=== PATIENT | female | born 1985 | race Asian ===

== ENCOUNTER 2017-11-07 22:33 | Emergency (ER) | payer OTHER ==
[~2017-11-07] VITALS: Ht 162.6 cm; Wt 56.7 kg
[2017-11-08 00:14] LABS: ABSOLUTE NEUTROPHILS 3.5 thou/uL (1.4-8.2); EOSINOPHILS 19.9 % (0.0-3.0); HEMATOCRIT 34.9 % (37.0-47.0); HEMOGLOBIN 11.7 gm/dL (12.0-15.0); MCH 26.2 pg (26.0-34.0); MCHC 33.6 g/dL (28.0-37.0); PLATELET COUNT 322 thou/uL (150-400); POLYS 32.1 % (36.0-66.0); RBC 4.48 mil/uL (4.20-5.00); RDW 15.4 % (10.5-14.5); WBC 10.8 thou/uL (4.0-11.0)
[2017-11-08 00:22] LABS: CALCIUM 9.1 mg/dL (8.5-10.1); CREATININE 0.7 mg/dL (0.6-1.0); POTASSIUM 4.2 mmol/L (3.5-5.1)
[2017-11-08 00:28] LABS: ALBUMIN 3.5 g/dL (3.4-5.0); TOTAL BILIRUBIN 0.5 mg/dL (<0.1-1.0); TOTAL PROTEIN 8.3 g/dL (6.4-8.2)
[2017-11-08 00:48] LABS: URINE BILIRUBIN NEGATIVE (Negative); URINE BLOOD NEGATIVE (Negative); URINE CLARITY CLEAR; URINE COLOR YELLOW; URINE GLUCOSE-RANDOM* NEGATIVE (Negative); URINE KETONES NEGATIVE (Negative); URINE LEUKOCYTES-REFLEX NEGATIVE (Negative); URINE NITRITE-REFLEX NEGATIVE (Negative); URINE PROTEIN (DIPSTICK) NEGATIVE (Negative); URINE SPECIFIC GRAVITY 1.015 (1.005-1.035); URINE UROBILINOGEN 0.2 E.U./dl (0.2-1.0)
[2017-11-08] MEDS ORDERED: TRAMADOL 50 MG50 MG PO (01:50)
[2017-11-08] MEDS ORDERED: NAPROSYN500 MG PO (01:50)
[2017-11-08 02:05] VITALS: BP 94/66
== END 2017-11-08 02:05 | disposition home or self-care (01) ==
LOC: ER 22:33
PROVIDERS: Physician Assistant
DX: N83.202 Unspecified ovarian cyst, left side (principal); N83.201 Unspecified ovarian cyst, right side; J45.909 Unspecified asthma, uncomplicated

== ENCOUNTER → 2018-02-17 | Outpatient (CLI) | payer OTHER ==
[~2018-02-17] MED LIST: NAPROSYN500 MG PO; TRAMADOL 50 MG50 MG PO
== END ==
LOC: RAD 10:06
DX: J18.1 Lobar pneumonia, unspecified organism (principal)

== ENCOUNTER → 2018-06-26 | Outpatient (CLI) | payer OTHER | LOC: ULTRA 11:14 | DX: N83.202 Unspecified ovarian cyst, left side (principal); N83.201 Unspecified ovarian cyst, right side; R05 Cough; N88.8 Other specified noninflammatory disorders of cervix uteri ==

== ENCOUNTER → 2018-07-21 | Outpatient (CLI) | payer OTHER | LOC: RAD 16:13 | DX: J98.4 Other disorders of lung (principal); R91.8 Other nonspecific abnormal finding of lung field ==

== ENCOUNTER → 2018-08-04 | Outpatient (CLI) | payer OTHER ==
[~2018-08-04] MED LIST changes: +DIPHENHYDRAMINE25 M3 PO; +MELATONIN3 MG PO; +SINGULAIR 10 MG10 M1 PO; +TYLENOL325 MG PO
== END ==
LOC: CAT 09:21
DX: J47.9 Bronchiectasis, uncomplicated (principal); R91.8 Other nonspecific abnormal finding of lung field

== ENCOUNTER 2018-08-10 06:18 | Outpatient (CLI) | payer OTHER ==
[~2018-08-10] VITALS: Ht 162.6 cm; Wt 63.0 kg
[~2018-08-10 06:18] MED LIST changes: -DIPHENHYDRAMINE25 M3 PO; -MELATONIN3 MG PO; -TYLENOL325 MG PO
[2018-08-10 09:30] VITALS: BP 112/77
[2018-08-10 12:44] LABS: CLARITY CLOUDY; COLOR PALE YELLOW; SOURCE RUL; TOTAL VOLUME 40 mL
[2018-08-10 13:01] LABS: BF NUCLEATED CELLS 516; BF RBC 1974
[2018-08-10 14:23] LABS: BF MACROPHAGE 38; BF NEUTROPHILS 35
[2018-08-11] MEDS ORDERED: TYLENOL325 MG PO (15:40)
[2018-08-11] MEDS ORDERED: MELATONIN3 MG PO (15:41)
[2018-08-11] MEDS ORDERED: DIPHENHYDRAMINE25 M3 PO (15:42)
--- NOTE | 2018-08-11 17:06 | PATH ---
[facility] [address] [place] [address] PATHOLOGY RPT [facility] #: DEP RENE Price.#: [id number] ������������������ Admission: 08/10/18 ������������������ Date of : 83 Discharge: 08/10/18 Report #: [id number] Path Case #: [id number] Note LCA Accession Number: [id number] TESTS RESULT FLAG UNITS REF RANGE LAB Clinician Provided Cytology Information No. of containers..01 Other (Miscellaneous) Source: RUL BRONCH WASH DIAGNOSIS: RUL BRONCH WASH NEGATIVE FOR MALIGNANT CELLS. REACTIVE BRONCHIAL CELLS ARE PRESENT. PULMONARY MACROPHAGES PRESENT, INDICATIVE OF LOWER RESPIRATORY TRACT SAMPLING. Pathologist ICD10: 02 R91.8 Signed out by: 02 Thelma Hobbs MD, Pathologist NPI- [id number] Performed by: Talya Cordova, Automated Logistics Specialist ([facility]) Gross description: 01 32ML, COLORLESS, CLOUDY /LCS FLAG LEGEND: L-Low Normal,H-High Normal,LL-Alert Low,HH-Alert High <-Panic Low,>-Panic High,A-Abnormal,AA-Critical Abnormal Performed at: [address] [place] [address] Marv Weinstein MD, [address] [address] Thelma Hobbs MD, Specimen Comment: A courtesy copy of this report has been sent to Specimen Comment: [phone], . Specimen Comment: Report sent to / DR SANFORD Performed at: [address], [place], [place] [address] MD Marv Weinstein MD Phone: [phone]
--- NOTE | 2018-08-11 17:06 | PATH ---
[facility] [address] [place] [address] PATHOLOGY RPT PROCEDURE Name: LUKE BARLOWKimmy Room #: DEP RENE Real.Summer.#: [id number] ������������������ Admission: 08/10/18 ������������������ Date of : 83 Discharge: 08/10/18 Report #: [id number] Path Case #: [id number] Note LCA Accession Number: [id number] TESTS RESULT FLAG UNITS REF RANGE LAB Clinician Provided Cytology Information No. of containers..01 Slide Source: BRONCHIAL BRUSHINGS DIAGNOSIS: 02 BRONCHIAL BRUSHINGS NEGATIVE FOR MALIGNANT CELLS. NORMAL BRONCHIAL CELLS AND MACROPHAGES ARE PRESENT. Pathologist ICD10: 02 R91.8 Signed out by: 02 Thelma Hobbs MD, Pathologist NPI- [id number] Performed by: 01 Eula Cordova Paleontological Helper ([facility]) FLAG LEGEND: L-Low Normal,H-High Normal,LL-Alert Low,HH-Alert High <-Panic Low,>-Panic High,A-Abnormal,AA-Critical Abnormal Performed at: [address] [place] [address] Marv Weinstein MD, [address] [address] Thelma Hobbs MD, Specimen Comment: A courtesy copy of this report has been sent to Specimen Comment: [phone], . Specimen Comment: Report sent to DR DAVIS / DR SANFORD Performed at: [address], [place], [place] [id number] MD Marv Weinstein MD Phone: [phone]
--- NOTE | 2018-08-14 08:54 | PATH ---
[facility] [place] [address] PATHOLOGY RPT PROCEDURE Name: LUKE BARLOWKimmy Room #: DEP RENE .Summer.#: [id number] ������������������ Admission: 08/10/18 ������������������ Date of : 83 Discharge: 08/10/18 Report #: [id number] Path Case #: [id number] Note LCA Accession Number: [id number] TESTS RESULT FLAG UNITS REF RANGE LAB Clinician Provided Cytology Information No. of containers..01 Slide No. of containers..01 Other (Miscellaneous) Source: CYTO BRONCH BRUSHTIP DIAGNOSIS: 02 CYTO BRONCH BRUSHTIP INCONCLUSIVE. REACTIVE BRONCHIAL CELLS ARE PRESENT. Comment: Examination shows a few crowded groups of epithelial cells with markedly enlarged nuclei and prominent nucleoli. These may represent reactive bronchial epithelial cells in a background of inflammatory process; however, a partially sampled neoplastic process cannot be excluded. These cells are not identified on the brushing smears or the BAL. Clinical correlation is suggested. Pathologist ICD10: 02 R91.8 Signed out by: Thelma Hobbs MD, Pathologist NPI- [id number] Performed by: 01 Eula Cordova, Knowledge Analyst ([facility]) Gross description: 01 20ML, COLORLESS, CLEAR /LCS FLAG LEGEND: L-Low Normal,H-High Normal,LL-Alert Low,HH-Alert High <-Panic Low,>-Panic High,A-Abnormal,AA-Critical Abnormal Performed at: 01 [facility] [address] [place] [address] Marv Weinstein MD, [address] [address] Thelma Hobbs MD, Specimen Comment: A courtesy copy of this report has been sent to Specimen Comment: [phone], . Specimen Comment: Report sent to DR DAVIS / DR SANFORD [address] [address] PATHOLOGY RPT PROCEDURE Name: SANDRA BARLOW Room #: DEP RENE Torrez#: [id number] ������������������ Admission: 08/10/18 ������������������ Date of : 83 Discharge: 08/10/18 Report #: [id number] Path Case #: [id number] Performed at: 01 [facility] [place] [address], [place], [place] [id number] MD Marv Weinstein MD Phone: [phone]
== END 2018-08-10 13:29 | disposition home or self-care (01) ==
LOC: CATH 06:18 → TBA 06:19 → OR 12:11 → EDSTATUS 13:26 → CATH 13:28
PROVIDERS: Pediatrics
DX: J98.4 Other disorders of lung (principal); R91.8 Other nonspecific abnormal finding of lung field; J45.909 Unspecified asthma, uncomplicated; D64.9 Anemia, unspecified; Z90.49 Acquired absence of other specified parts of digestive tract; Z98.890 Other specified postprocedural states; Z79.899 Other long term (current) drug therapy
CPT/HCPCS: 62110; 62900; 70005

== ENCOUNTER 2018-08-11 14:22 | Inpatient (IN) | payer OTHER ==
[~2018-08-11] VITALS: Ht 162.6 cm; Wt 64.0 kg
--- NOTE | ~2018-08-11 | HC ---
[facility] [place] [address] [facility]: [facility]-P [facility] IN M.R.#: [id number] Admission: 08/11/18 ������������������ Attend Phys: Kenrick Adamson MD Discharge: 08/12/18 ������������������ Date of : 83 Report #: [id number] THIS REPORT FOR: //name// CC: Jocelyn Adamson DATE OF SERVICE: 08/12/2018 TYPE OF REPORT: Infectious diseases consultation. REASON FOR CONSULTATION: Bronchiectasis and right upper lobe disease with asthma. HISTORY OF PRESENT ILLNESS: The patient is a 33-year old with longstanding history of asthma, who was diagnosed with bronchiectasis after she was treated for pneumonia in January. The right upper lobe failed to clear after several courses of antibiotics. CT scan obtained last week did show evidence of bronchiectasis most predominant in the right upper lobe. She underwent bronchoscopy on 08/10/2018. There was thick mucus evident in the right upper lobe rhonchi, which was suctioned out. Pathology showed no evidence of malignancy. Gram stain showed no organisms and no growth so far. She has immigrant at the [place] about 14 years ago. She had 1 PPD that was positive in 2014. Previous to that, she was PPD negative. She did have BCG vaccination as a child. This was worked up in the outpatient setting where her chest x-ray showed evidence of right upper lobe disease. She had 3 sputum cultures, which were negative for Mycobacterium. She had tuberculosis, gamma interferon testing, which was negative. She received no antituberculous therapy. Following her bronchoscopy on the , she developed a low-grade fever associated with dyspnea and was admitted through the Emergency Room for further evaluation, placed on corticosteroids. She has calmed down and feels back to her baseline. She has had no cough or sputum production. She did have episode of nausea and vomiting prior to her admission and that has resolved as well. Now, she wishes to return home and follow up as an outpatient. She has had no further workup for immunodeficiency. She has no history of pneumonia or sinus infections as a child. She has no family history of cystic fibrosis. She has had 2 children. Her youngest is 5 years old. She denies any other skin infections, dental infections or genitourinary infections. ALLERGIES: None known. MEDICATIONS: As noted on her MAR including prednisone. PAST MEDICAL HISTORY: Ovarian cyst excision, asthma, appendectomy, pneumonias as we have discussed and anemia. FAMILY HISTORY: Noncontributory other than asthma. She actually lost her [facility] [address] [place] [address] [facility] #: [facility]-P [facility] IN M.R.#: [id number] Admission: 08/11/18 ������������������ Attend Phys: Kenrick Adamson MD Discharge: 08/12/18 ������������������ Date of : 83 Report #: [id number] in her 20s from asthmatic attack. SOCIAL HISTORY: and nonsmoker. Works in nursing. No significant alcohol intake. REVIEW OF SYSTEMS: Ten-point review was negative other than what is described above. PHYSICAL EXAMINATION: VITAL SIGNS: Afebrile and hemodynamically stable. GENERAL: Alert and cooperative, in no acute distress. SKIN: Without rash or lesion. No palpable adenopathy. HEENT: Eyes, without scleral icterus or conjunctivitis. Mouth without mucositis. NECK: Supple, with no thyromegaly or mass. LUNGS: Scattered wheezes. No consolidation. HEART: Regular, without murmur, gallop or rub. ABDOMEN: Soft and nontender. No hepatosplenomegaly or mass. EXTREMITIES: Without clubbing, cyanosis or edema. Cranial nerves intact. Strength in upper and lower extremities was normal. Sensation in the upper and lower extremities are normal. LABORATORY STUDIES: Sodium 140, potassium 3.8, bicarbonate 22 and creatinine 0.8. Liver function test normal. Hemoglobin 11.6; white count 8.9 and platelet count 384,000. Differential prior to her corticosteroids showed an eosinophil percent of 10% in November of 2017, it was 19%. Bronchoscopy results as noted above. RADIOLOGICAL DATA: Chest x-ray, right upper lobe infiltrate. CT scan of the chest was reviewed showing mild left upper lobe and lingular bronchiectasis with extensive bronchiectasis in the right upper lobe. IMPRESSION: A 33-year old underlying asthma with bronchiectasis and extensive lesion in the right upper lobe. 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 Doubt atypical mycobacterial infection considering her workup several years ago was negative for mycobacterial growth, although this is still potential in someone with bronchiectasis. Other consideration would be cystic fibrosis or other autoimmune process, which seems less likely given her family history. RECOMMENDATIONS: We will obtain Aspergillus antibodies, IgE level as well as quantitative immunoglobulins and HIV. Also screen for cystic fibrosis. She is on corticosteroids now and improving. Following initial studies, if confirmatory, we would consider treating her for several months with itraconazole for allergic bronchopulmonary aspergillosis. She will follow up [facility] [address] [place] [address] CONSULTATION Name: SANDRA BARLOW Room #: 424-P DIS IN .R.#: [id number] Admission: 08/11/18 ������������������ Attend Phys: Kenrick Adamson MD Discharge: 08/12/18 ������������������ Date of : 83 Report #: [id number] with Pulmonary Medicine in 2 weeks. I will be more than happy to evaluate her if needed for treatment pending these studies. ��������������������������������������������� ���������������������������������������� By: ��������������������������������������������� 1503 0430 Junaid Villalobos MD /nt
[2018-08-11 14:26] VITALS: BP 123/80
[2018-08-11 15:25] LABS: ABSOLUTE NEUTROPHILS 5.7 thou/uL (1.4-8.2); BASOPHILS 0.5 % (0.0-2.0); HEMATOCRIT 38.3 % (37.0-47.0); HEMOGLOBIN 12.5 gm/dL (12.0-15.0); LYMPHOCYTES 24.6 % (24.0-44.0); MCH 25.8 pg (26.0-34.0); MCHC 32.8 g/dL (28.0-37.0); MCV 78.7 fL (80.0-100.0); MONOCYTES 6.8 % (1.0-8.0); PLATELET COUNT 344 thou/uL (150-400); POLYS 58.1 % (36.0-66.0); RBC 4.86 mil/uL (4.20-5.00); RDW 17.7 % (10.5-14.5); WBC 9.8 thou/uL (4.0-11.0)
[2018-08-11 15:34] LABS: ANION GAP 12 mmol/L (7-16); BUN 5 mg/dL (7-18); CALCIUM 9.5 mg/dL (8.5-10.1); CHLORIDE 102 mmol/L (98-107); CO2 26 mmol/L (21-32); CREATININE 0.9 mg/dL (0.6-1.0); GLUCOSE 94 mg/dL (74-106); POTASSIUM 3.3 mmol/L (3.5-5.1); SODIUM 140 mmol/L (136-145)
[2018-08-11] MEDS ORDERED: TYLENOL325 MG PO (15:40)
[2018-08-11] MEDS ORDERED: MELATONIN3 MG PO (15:41)
[2018-08-11 15:42] LABS: TROPONIN-I <0.06 ng/mL (<0.06)
[2018-08-11] MEDS ORDERED: DIPHENHYDRAMINE25 M3 PO (15:42)
[2018-08-11 16:05] LABS: BE(vivo) -0.9 mmol/L (-2 to +3); HCO3 23.2 mmol/L (22.0-26.0); PCO2 36.4 mmHg (35.0-45.0); PO2 67.8 mmHg (80.0-100.0); pH 7.422 (7.360-7.450)
[2018-08-11 16:23] LABS: DIRECT BILIRUBIN 0.1 mg/dL (<0.1-0.3); TOTAL BILIRUBIN 0.9 mg/dL (<0.1-1.0); TOTAL PROTEIN 9.1 g/dL (6.4-8.2)
[2018-08-11 18:02] VITALS: BP 112/74
[2018-08-11 18:53] VITALS: BP 115/72
--- NOTE | 2018-08-11 19:12 | NUR ---
CHECKED PT AT 1840, PHYSICIAN IN ROOM WITH SPOUSE, VITAL SIGNS OBTAINED REPORT HAS BEEN GIVEN. PT TAKEN TO FLOOR
[2018-08-11 19:37] VITALS: BP 106/70
[2018-08-12] VITALS (9 sets, daily range): BP systolic 95–102; BP diastolic 53–73
--- NOTE | 2018-08-12 03:30 | NUR ---
Pt came to unit from ED approx 1845. Admission completed. Will call in consults for infections disease and pulmonology in am. Up ad cindi. No c/o pain. Potassium IV infusing. Pt states her throat is aching from recent bronchoscopy and is not able to swallow pills without pain. 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 Pt states she is unable to sleep. No on duty notified and new order noted. No c/o soa or trouble breathing. Family at bedside. Call light within reach. Will continue to monitor.
[2018-08-12 05:25] LABS: ABSOLUTE NEUTROPHILS 7.3 thou/uL (1.4-8.2); BASOPHILS 0.9 % (0.0-2.0); EOSINOPHILS 0.1 % (0.0-3.0); HEMATOCRIT 35.8 % (37.0-47.0); HEMOGLOBIN 11.6 gm/dL (12.0-15.0); LYMPHOCYTES 15.2 % (24.0-44.0); MCH 25.7 pg (26.0-34.0); MCHC 32.4 g/dL (28.0-37.0); MCV 79.4 fL (80.0-100.0); PLATELET COUNT 384 thou/uL (150-400); POLYS 81.8 % (36.0-66.0); RBC 4.51 mil/uL (4.20-5.00); RDW 17.6 % (10.5-14.5); WBC 8.9 thou/uL (4.0-11.0)
[2018-08-12 05:48] LABS: CALCIUM 9.5 mg/dL (8.5-10.1); CREATININE 0.8 mg/dL (0.6-1.0); MAGNESIUM 1.9 mg/dL (1.8-2.4); POTASSIUM 3.8 mmol/L (3.5-5.1)
--- NOTE | 2018-08-12 14:33 | NUR ---
DR GUILLE TEE HERE TO SEE PATIENT DR VITA CEJA HERE EARLIER STATED THAT IF DR TEE AND DR DAVIS AGREE THAT IS OKAY TO DISCHARGE PATIENT MAY BE DCD. DR DVAIS CALLED RX TO [facility].
--- NOTE | 2018-08-12 15:19 | NUR ---
PT DISCHARGED AT THIS TIME. IV ACSESS DCD. DISCHARGE PAPERS GONE OVER AND SIGNED COPY IN CHART. ALL BELONGINGS PACKED AND SENT WITH PATIENT. PT LEFT WITH SPOUSE.
--- NOTE | 2018-08-13 13:19 | EKG ---
[address] [address] ELECTROCARDIOGRAM REPORT Name: CAINSANDRA Room #: 424-[facility] IN M.R.#: [id number] ������������������ Admission: 08/11/18 ������������������ Attend Phys: Kenrick Adamson MD Discharge: 08/12/18 ������������������ Date of : 83 Report #: [id number] ����������������������������������������������������������������� [id number] THIS REPORT FOR: //name// [facility] ED Test Date: 2018-08-11 Test Time: 15:14:04 Pat Name: SANDRA BARLOW Department: Room: [facility] Gender: F Night Shift: ARTURO : 1985 Requested By: Lucas Guevara Order Number: [id number] MD: Kleber Cohen Measurements Intervals [place] Rate: 89 P: 57 ND: 135 QRS: 22 QRSD: 84 T: 13 QT: 338 QTc: 412 Interpretive Statements Sinus rhythm Normal tracing No previous ECG available for comparison Electronically Signed On 08-13-2018 13:19:20 CDT by Kleber Cohen [email or web address] ��������������������������������������������� <ELECTRONICALLY SIGNED> ���������������������������������������� By: Kleber Cohen MD, [facility] ��������������������������������������������� 08/13/18 1319 1513 13 Kleber Cohen MD, FACC /EPI
== END 2018-08-12 15:20 | disposition home or self-care (01) | DRG 196 ==
LOC: ER 14:22 → EROBS 17:03 → 4E 18:49
PROVIDERS: Emergency Medicine; Nurse Practitioner; Specialist; ADMIT Internal Medicine
DX: J82 Pulmonary eosinophilia, not elsewhere classified (principal); J96.01 Acute respiratory failure with hypoxia; E87.6 Hypokalemia; J47.9 Bronchiectasis, uncomplicated; R91.1 Solitary pulmonary nodule; Z79.899 Other long term (current) drug therapy; Z90.49 Acquired absence of other specified parts of digestive tract; Z82.5 Family history of asthma and other chronic lower respiratory diseases
CPT/HCPCS: 10084

== ENCOUNTER → 2018-09-15 | Outpatient (CLI) | payer OTHER ==
[~2018-09-15] MED LIST changes: +DIPHENHYDRAMINE25 M3 PO; +MELATONIN3 MG PO; +TYLENOL325 MG PO
== END ==
LOC: RAD 12:21
DX: J98.4 Other disorders of lung (principal)

== ENCOUNTER 2018-10-06 22:28 | Emergency (ER) | payer OTHER ==
[~2018-10-06] VITALS: Ht 162.6 cm; Wt 62.6 kg
[2018-10-06 22:47] LABS: URINE BILIRUBIN NEGATIVE (Negative); URINE BLOOD 2+ (Negative); URINE CLARITY CLEAR; URINE COLOR YELLOW; URINE GLUCOSE-RANDOM* NEGATIVE (Negative); URINE KETONES NEGATIVE (Negative); URINE LEUKOCYTES-REFLEX TRACE (Negative); URINE NITRITE-REFLEX NEGATIVE (Negative); URINE PROTEIN (DIPSTICK) NEGATIVE (Negative); URINE UROBILINOGEN 0.2 E.U./dl (0.2-1.0)
[2018-10-06 23:02] LABS: BACTERIA-REFLEX >30 Many /HPF (None Seen); CASTS None Seen /LPF (None Seen); CRYSTALS None Seen /LPF (None Seen); MUCUS None Seen strn/LPF (None Seen); SQUAMOUS 0-3 Few /LPF (0-3); URINE RBC 0-2 Rare /HPF (0-2); URINE WBC-REFLEX 0-5 Rare /HPF (0-5)
[2018-10-06] MEDS ORDERED: SYMBICORT160 MCG/4. INH (23:40)
[2018-10-06] MEDS ORDERED: DIPHENHIST50 MG PO (23:41)
[2018-10-06] MEDS ORDERED: TYLENOL EXTRA500 MG PO (23:41)
[2018-10-06] MEDS ORDERED: NYQUIL PO (23:42)
[2018-10-07 00:27] VITALS: BP 00/00
== END 2018-10-07 00:22 | disposition left against medical advice (07) ==
LOC: ER 22:28
PROVIDERS: Emergency Medicine
DX: J06.9 Acute upper respiratory infection, unspecified (principal); R00.0 Tachycardia, unspecified; J45.909 Unspecified asthma, uncomplicated; Z90.49 Acquired absence of other specified parts of digestive tract; Z87.01 Personal history of pneumonia (recurrent); Z86.2 Personal history of diseases of the blood and blood-forming organs and certain disorders involving the immune mechanism; Z85.43 Personal history of malignant neoplasm of ovary

== ENCOUNTER → 2018-10-17 | Outpatient (CLI) | payer OTHER ==
[~2018-10-17] MED LIST changes: +DIPHENHIST50 MG PO; +NYQUIL PO; +SYMBICORT160 MCG/4. INH; +TYLENOL EXTRA500 MG PO
== END ==
LOC: ULTRA 10:50
DX: M79.89 Other specified soft tissue disorders (principal); M79.605 Pain in left leg

== ENCOUNTER → 2019-01-10 | Outpatient (CLI) | payer OTHER | LOC: RAD 17:09 | DX: J47.9 Bronchiectasis, uncomplicated (principal); R91.8 Other nonspecific abnormal finding of lung field ==

== ENCOUNTER 2019-01-31 06:26 | Day surgery (SDC) | payer OTHER ==
[~2019-01-31] VITALS: Ht 162.6 cm; Wt 63.5 kg
[~2019-01-31 06:26] MED LIST changes: +STOOL SOFTENER1 EAC2 PO; +VFEND 200 MG T200 M1 PO
[2019-01-31 06:58] LABS: HEMATOCRIT 33.5 % (37.0-47.0); HEMOGLOBIN 10.6 gm/dL (12.0-15.0); MCH 24.4 pg (26.0-34.0); MCHC 31.7 g/dL (28.0-37.0); MCV 77.1 fL (80.0-100.0); RBC 4.35 mil/uL (4.20-5.00); RDW 16.1 % (10.5-14.5); WBC 9.6 thou/uL (4.0-11.0)
[2019-01-31 07:29] VITALS: BP 118/77
[2019-01-31] MEDS ORDERED: NORCO 5-325 TA1 EAC1 PO (10:36)
[2019-01-31 10:45] VITALS: BP 118/77
[2019-01-31] MEDS ORDERED: ZOFRAN ODT4 MG DISSOLVE (15:32)
--- NOTE | 2019-01-31 15:41 | O ---
[facility] [place] [address] OPERATIVE REPORT Name: SANDRA BARLOW Room #: 150-3 [facility]..#: [id number] Admission: 01/31/19 Attend Phys: Saman So MD Discharge: Date of : 83 Report #: [id number] THIS REPORT FOR: //name// CC: Jocelyn Ariza MD DATE OF SERVICE: 01/31/2019 PATIENT OF: Cliff Ariza M.D. and ADAM Paul. PREOPERATIVE DIAGNOSIS: Incarcerated ventral epigastric hernia. POSTOPERATIVE DIAGNOSIS: Incarcerated ventral epigastric hernia. PROCEDURE: Repair of an incarcerated ventral epigastric hernia. SURGEON: Saman So MD ANESTHESIA: Local IV sedation. DESCRIPTION OF PROCEDURE: The patient was brought to the operating room and placed on operative table in the supine position. Sequential compression devices were in place for DVT prophylaxis. There was no indication for preoperative antibiotics. The patient underwent IV sedation and the abdomen was then prepped and draped in a sterile fashion. Skin and subcutaneous tissue were then infiltrated with 0.5% Marcaine and 1% Xylocaine in a 1:1 mixture. A vertical upper midline abdominal incision was performed using #15 scalpel blade. Hemostasis obtained using electrocautery. Dissection was carried down through subcutaneous tissue to a large piece of incarcerated preperitoneal fat. This was dissected free down to the fascia, clamped, excised and tied with 2-0 chromic tie. The fascial defect was identified as well as a second smaller defect inferior between the umbilicus in this area. Both of these defects were closed and repaired using interrupted hjfdrd-hy-wrtzo #1 Prolene sutures. Deep and superficial subcutaneous tissue was then reapproximated using simple interrupted 2-0 chromic sutures and the skin then closed with a running 4-0 subcuticular Vicryl stitch. The wound was then dressed with Mastisol, 1/2-inch Steri-Strips cut in half, Telfa, 4 x 4 gauze, sponge and tape. The patient was then taken to the recovery room awake, alert and in good condition. Estimated blood loss was approximately 5 mL and the patient tolerated procedure well. All sponge, lap and instrument counts correct x 2. <ELECTRONICALLY SIGNED> By: Saman So MD 01/31/19 1541 1034 1138 Saman So MD /nt
--- NOTE | 2019-01-31 15:41 | H ---
[facility] [place] [address] HISTORY AND PHYSICAL Name: SANDRA BARLOW Room #: 150-3 [facility] M..#: [id number] Admission: 01/31/19 Attend Phys: Saman So MD Discharge: Date of : 83 Report #: [id number] THIS REPORT FOR: //name// CC: Jocelyn Ariza MD PATIENT OF: ADAM Dietrich and Saman Ariza M.D. CHIEF COMPLAINT: Umbilical bulge. HISTORY OF PRESENT ILLNESS: The patient is a 33-year-old female who for about a year has had pain and abdominal bulge. She stated it started at the belly button and radiating around to the side. It usually occurred at work. She has not had anything like this before. She states that when it does bulge out lying down on the floor makes it feel better. She states that eating makes it worse. She has taken ibuprofen in the past, which does help the pain, but does not relieve it completely. No previous history of any trauma to the area. No bowel or bladder habit changes. She did have a urinary tract infection a couple of months ago, but it was not associated with this. She has a history of a fungal infection of the lung with a history of multiple pneumonias in the past diagnosed on bronchoscopy by Dr. Cliff Ariza and has been on antifungal agent as well as prednisone for 10 mg a day; however, the patient stopped the prednisone abruptly approximately 3-1/2 months ago. She does occasionally have low-grade fevers, some nausea, constipation, bloating, but no diarrhea or vomiting. 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 PAST MEDICAL HISTORY: Anemia, asthma, ovarian cyst, appendectomy in 2006. MEDICATIONS: Voriconazole, Singulair. ALLERGIES: No known drug allergies. FAMILY HISTORY: Noncontributory. SOCIAL HISTORY: Does not smoke, never smoked. She is , does not drink alcohol. REVIEW OF SYSTEMS: Pertinent positives as above. Full review of systems otherwise negative. PHYSICAL EXAMINATION: GENERAL: This is a well-developed, well-nourished female, in no acute distress. VITAL SIGNS: Stable. She is afebrile. BMI of 24.2. [address] [address] [facility] #: [facility].#: [id number] Admission: 01/31/19 Attend Phys: Saman So MD Discharge: Date of : 83 Report #: [id number] HEENT: Sclerae are nonicteric. Mucous membranes moist and pink. NECK: There is no adenopathy, no thyromegaly. LUNGS: Clear to auscultation bilaterally. No wheezes or rhonchi. CARDIOVASCULAR: Regular rate and rhythm. No murmurs, S3 or S4. Normal PMI. ABDOMEN: Soft, flat, nontender. She is slightly tender in the epigastric area with a palpable midline subcutaneous mass consistent with an incarcerated preperitoneal hernia. No abdominal incision scars. No other palpable masses, no organomegaly. EXTREMITIES: No clubbing, cyanosis or edema. NEUROLOGIC: Intact with a clear mental status. IMPRESSION: A 33-year-old [place] female with a ventral epigastric hernia. I fully discussed with the patient the diagnosis, prognosis, and treatment options and I am recommending repair of this hernia. I did discuss with the patient that hernia surgery may relieve all, some or none of her abdominal pain. She states she understands and agrees to proposed surgery. PLAN: We will perform a ventral epigastric hernia repair under local IV sedation as an outpatient at [facility]. The procedure and its risks, benefits and possible complications were fully discussed with the patient, she states she understands and agrees to proposed surgery. <ELECTRONICALLY SIGNED> By: Saman So MD 01/31/19 1541 1333 1347 Saman So MD /nt
== END 2019-01-31 11:09 | disposition home or self-care (01) ==
LOC: OR 06:26 → TBA 06:31 → OR 10:13
PROVIDERS: Surgery
DX: K43.6 Other and unspecified ventral hernia with obstruction, without gangrene (principal); D64.9 Anemia, unspecified; J45.909 Unspecified asthma, uncomplicated; Z90.49 Acquired absence of other specified parts of digestive tract; Z79.899 Other long term (current) drug therapy; Z98.890 Other specified postprocedural states
CPT/HCPCS: 50010; 50101; 50386; 50417; 56524; 56525; 56526; 62110; 62900; 70005

== ENCOUNTER → 2019-10-08 | Outpatient (CLI) | payer OTHER ==
[~2019-10-08] MED LIST changes: +NORCO 5-325 TA1 EAC1 PO; +ZOFRAN ODT4 MG DISSOLVE
== END ==
LOC: BC 13:16
DX: N63.22 Unspecified lump in the left breast, upper inner quadrant (principal)

== ENCOUNTER → 2019-10-09 | Outpatient (CLI) | payer OTHER ==
--- NOTE | 2019-10-11 14:08 | PATH ---
[facility] [address] [place] [address] PATHOLOGY RPT PROCEDURE Name: JORGE CURTIS Room #: REG RENE Price.#: [id number] Admission: 10/09/19 Date of : 83 Discharge: Report #: [id number] Path Case #: [id number] LCA Accession Number: [id number] . 01 Material submitted: . breast - LEFT BREAST MASS 11:00, 6CM. Modifiers: left, 11:00 . 01 Clinical history: . Left breast mass . 02 Diagnosis: Breast "left - mass 11:00-6:00", ultrasound guided needle biopsy: - Fibroadenoma. - Negative for atypia and malignancy. - Please see comment. [facility] 10/10/2019 1720 Local . 02 Comment: The case is seen in co-review with Dr. Barbara Guillory who concurs with the above diagnosis. (ESTEFANYK/db; 10/10/2019) . 02 Electronically signed: . Dean Flores MD, Pathologist NPI- [id number] . 01 Gross description: . The specimen is received in formalin, labeled "Jorge Curtis, left breast 11:00 6 cm". Received are multiple needle cores of fibrofatty tissue measuring 3.2 x 3.2 x 0.5 cm in aggregate dimensions. The specimen is submitted entirely in cassettes A1 through A4. The cold ischemic time is less than 1 minute. The total formalin fixation time is 13 hours and 45 minutes. (CAA; 10/09/2019) QAC/QAC 10/09/2019 1807 Local . 02 Pathologist provided ICD-10: D24.2 . 02 CPT . 206402 Specimen Comment: A courtesy copy of this report has been sent to [phone] Specimen Comment: [phone] Specimen Comment: Report sent to / DR DUBOIS Performed at: 01 [place] [address] PATHOLOGY RPT PROCEDURE Name: JORGE CURTIS Room #: REG [facility] Shan#: [id number] Admission: 10/09/19 Date of : 83 Discharge: Report #: [id number] Path Case #: [id number] [address] [facility] [address], [place], [place] [id number] MD Marv Weinstein MD Phone: [phone] Performed at: [address] [id number] MD Thelma Hobbs MD Phone: [phone]
== END | disposition home or self-care (01) ==
LOC: ULTRA 10:22
DX: D24.2 Benign neoplasm of left breast (principal); R92.1 Mammographic calcification found on diagnostic imaging of breast; Z79.899 Other long term (current) drug therapy

== ENCOUNTER → 2019-10-22 | Outpatient (CLI) | payer OTHER | LOC: ULTRA 11:19 | PROVIDERS: ATTEND Nurse Practitioner | DX: N63.22 Unspecified lump in the left breast, upper inner quadrant (principal) ==

== ENCOUNTER 2020-06-25 10:16 | Inpatient (IN) | payer OTHER ==
[~2020-06-25] VITALS: Ht 162.6 cm; Wt 62.0 kg
[2020-06-25 10:22] VITALS: BP 116/67
[2020-06-25] MEDS ORDERED: TIZANIDINE HCL4 M2 PO (10:38)
[2020-06-25 11:38] LABS: ABSOLUTE NEUTROPHILS 12.4 thou/uL (1.4-8.2); BASOPHILS 0.5 % (0.0-2.0); HEMOGLOBIN 11.7 gm/dL (12.0-15.0); LYMPHOCYTES 10.4 % (24.0-44.0); MCH 24.1 pg (26.0-34.0); MCHC 31.7 g/dL (28.0-37.0); MCV 75.8 fL (80.0-100.0); MONOCYTES 6.3 % (1.0-8.0); PLATELET COUNT 398 thou/uL (150-400); POLYS 80.8 % (36.0-66.0); RBC 4.88 mil/uL (4.20-5.00); RDW 16.8 % (10.5-14.5); WBC 15.3 thou/uL (4.0-11.0)
[2020-06-25 11:58] LABS: CALCIUM 9.4 mg/dL (8.5-10.1); POTASSIUM 3.6 mmol/L (3.5-5.1)
[2020-06-25 12:03] LABS: TOTAL BILIRUBIN 0.7 mg/dL (0.2-1.0); TOTAL PROTEIN 8.9 g/dL (6.4-8.2)
--- NOTE | 2020-06-25 16:13 | EKG ---
[address] [address] ELECTROCARDIOGRAM REPORT Name: SANDRA BARLOW Room #: 170-4 ADM IN M.R.#: [id number] Admission: 06/25/20 Attend Phys: Ruy Vogel MD Discharge: Date of : 83 Report #: [id number] [facility] ED Test Date: 2020-06-25 Test Time: 15:49:57 Pat Name: SANDRA BARLOW Department: Room: 170 Gender: F Medical Receptionist Biller: jackie : 1985 Requested By: Keon Brooks Order Number: [id number] MD: Johnie Buenrostro Measurements Intervals [place] Rate: 110 P: 59 AK: 134 QRS: 27 QRSD: 85 T: -8 QT: 340 QTc: 461 Interpretive Statements Sinus tachycardia Borderline T abnormalities, anterior leads Compared to ECG 08/11/2018 15:14:04 T-wave abnormality now present Sinus rhythm no longer present Electronically Signed On 06-25-2020 16:13:35 BOOK CRITIC by Johnie Buenrostro [email or web address] <ELECTRONICALLY SIGNED> By: Johnie Buenrostro MD, [facility] 06/25/20 1613 1549 1549 Johnie Buenrostro MD, FAC /EPI
[2020-06-26 02:45] VITALS: BP 90/49
[2020-06-26 03:30] VITALS: BP 106/52
[2020-06-26 03:37] VITALS: BP 94/57
--- NOTE | 2020-06-26 04:32 | NUR ---
Pt admitted from ED approx 0325 via cart in stable condition. A/OX4,up w/sba in room d/t weakness. VSS. Denies pain on assessment, reports occasional non productive cough and dyspnea on exertion, on RA. Skin intact. Fall education reinforced and pt encouraged to call for help as needed and agreeable to. Resting quietly at this time w/o any distress notd,will continue to monitor pt.
[2020-06-26 06:07] LABS: HEMATOCRIT 32.8 % (37.0-47.0); HEMOGLOBIN 10.3 gm/dL (12.0-15.0); MCH 24.1 pg (26.0-34.0); MCHC 31.5 g/dL (28.0-37.0); MCV 76.7 fL (80.0-100.0); RBC 4.27 mil/uL (4.20-5.00); RDW 17.1 % (10.5-14.5); WBC 11.9 thou/uL (4.0-11.0)
[2020-06-26 06:17] LABS: CALCIUM 8.5 mg/dL (8.5-10.1); CREATININE 0.7 mg/dL (0.6-1.0); POTASSIUM 4.1 mmol/L (3.5-5.1)
[2020-06-26 07:48] VITALS: BP 96/63
--- NOTE | 2020-06-26 10:01 | NUR ---
Assumed care this am, pt stated she does not need PT or OT and she does fine. Stayed at the ER for a long itme prior to coming to the unit, stated she does not want to be disturned and to inform staff to avoied coming in the room.
[2020-06-26] MEDS ORDERED: VIBRAMYCIN 100100 MG PO (12:05)
[2020-06-26 14:45] VITALS: BP 96/63
== END 2020-06-26 17:57 | disposition home or self-care (01) | DRG 189 ==
LOC: ER 10:16 → EROBS 15:28 → 4W 15:28
PROVIDERS: Physician Assistant; ADMIT Hospitalist; ATTEND Hospitalist
DX: J96.00 Acute respiratory failure, unspecified whether with hypoxia or hypercapnia (principal); J47.1 Bronchiectasis with (acute) exacerbation; Z20.822 Contact with and (suspected) exposure to COVID-19; J45.909 Unspecified asthma, uncomplicated; Z90.49 Acquired absence of other specified parts of digestive tract; Z79.899 Other long term (current) drug therapy